=== PATIENT | male | born 1950 | race Caucasian/White ===

== ENCOUNTER → 2017-09-03 | Outpatient (CLI) | payer MEDICARE, OTHER ==
[~2017-09-03] MED LIST: CONTRAST GIVEN MC; IOHEXOL 300 MG/ML 100ML VIAL. IV
[2017-09-03] MEDS: IOHEXOL 300 MG/ML 100ML VIAL. IV (11:51)
== END | disposition home or self-care (01) ==
LOC: CT 10:07
DX: N28.1 Cyst of kidney, acquired (principal); M51.36 Other intervertebral disc degeneration, lumbar region; M48.061 Spinal stenosis, lumbar region without neurogenic claudication; K57.30 Diverticulosis of large intestine without perforation or abscess without bleeding; D35.02 Benign neoplasm of left adrenal gland; K43.9 Ventral hernia without obstruction or gangrene; N13.39 Other hydronephrosis; R59.0 Localized enlarged lymph nodes
CPT/HCPCS: 74178